=== PATIENT | male | born 1975 | race Caucasian/White ===

== ENCOUNTER 2023-12-27 11:39 | Day surgery (SDC) | payer OTHER, SELFPAY ==
[2023-12-25 16:35] VITALS: BMI 24.4
--- NOTE | 2023-12-27 12:21 | ECG_ITS ---
APPROVED REPORT Exam: Resting ECG HR:71 bpm ECG Measurements Heart Rate 71 AXES SD 150 P 70 QRSd 102 QRS 70 QT 400 T 61 QTc 423 Conclusion SINUS RHYTHM LEFT ATRIAL abnormality BORDERLINE ECG UNCONFIRMED REPORT Electronically signed by : Micha Hinds MD 12/31/2023 12:53:39
--- NOTE | 2023-12-27 12:42 | EXP.ANES.CKL ---
[facility] Disclaimer: The information contained in this section may have been updated after the patient was seen, as this information can be updated by other users. Medical History Hypertension Surgical History No significant past surgical history Family History Other No significant family history Social History Smoking Status: Never smoker alcohol intake: never substance use type: denies use current occupational status: employed Travel in the last 8 weeks: None [facility] Anesthesia Checklist Patient Identification Patient Identification: Arm Band and Verbal (Name & ) Structural Data Admitted From: Home Planned Operative Procedure/s: Colonoscopy Consent for Planned Operative Procedure(s) Verified: Yes Verified Documents: Surgical Consent and History and Physical NPO Status Verified Time NPO: 00:00 Additional verifications Anesthesia Reactions: No Airway Assessment Mallampati Score:: Class II C-Spine Mobility Assessed: Yes TMJ Mobility Assessed: Yes Dentition: Good Dentition Neurological Assessment Level of Consciousness: Awake Hx Seizures: No Numbness or tingling in extremities: No Anesthesia Plan Anesthesia Risk discussed: Yes Anesthesia Plan: Verified ASA Class: II Anesthesia Type: MAC
[2023-12-27 13:04] VITALS: O2SAT 100
[2023-12-27 13:07] VITALS: BP 139/89; PULSE 77; RESP 18; TEMP 36.6; O2SAT 100
--- NOTE | 2023-12-27 13:07 | EXP.HP ---
History of Present Illness *Admission Date: 12/27/23 *Reason for visit:: Positive Cologuard *History of present illness: Mr. Lim is a 48-year-old gentleman who is here for positive Cologuard. This is his first colonoscopy. The examination is deemed medically necessary for colonoscopy for screening. The patient has been seen, interviewed and examined prior to the procedure by both myself and the anesthesia provider. [facility] Disclaimer: The information contained in this section may have been updated after the patient was seen, as this information can be updated by other users. Medical History Hypertension Surgical History No significant past surgical history Family History Other No significant family history Social History (Updated 12/27/23 @ 12:42 by Jose Baltazar CRNA) Smoking Status: Never smoker alcohol intake: never substance use type: denies use current occupational status: employed Travel in the last 8 weeks: None Review of Systems Review of Systems Review of systems (narrative): Negative *Cardiovascular Comments: Negative *Gastrointestinal Comments: Negative *Genitourinary Comments: Negative *Musculoskeletal Comments: Negative *Neurologic Comments: Negative Meds Home Medications and Allergies Home Medications ?Medication ?Instructions ?Recorded ?Confirmed ?Type lisinopril 20 mg tablet 20 mg PO DAILY 12/27/23 12/27/23 History New Prescriptions to Start Prescriptions: Allergies Allergy/AdvReac Type Severity Reaction Status Date / Time cephalexin [From Keflex] Allergy Unknown Verified 12/26/23 08:04 allergy reaction Exam Data for Last 24 hours Vital signs and Labs for Last 24 Hours: O2 Del Method O2 Flow Rate Nasal Cannula 5 12/27/23 13:04 12/27/23 13:04 I & O for Last 24 hours: Intake & Output 12/24/23 12/25/23 12/26/23 12/27/23 22:59 23:59 23:59 23:59 Weight 185 lb *Routine HEENT Exam Head: Present normocephalic Eye: Present EOMI and PERRL ENT: Present mucous membranes moist *Routine Neck Exam Neck: Present supple *Routine Respiratory Exam Respiratory: Present CTA bilaterally *Routine Cardiovascular Exam Cardiovascular: Present RRR *Routine Abdominal Exam Abdominal: Present soft and normoactive bowel sounds; Absent tenderness *Routine Rectal Exam Rectal:: deferred *Routine Genitalia Exam Genitalia:: deferred *Routine Extremities Exam Extremities: Absent cyanosis, clubbing or edema *Routine Skin Exam Skin: Present warm; Absent rash *Routine Neurological Exam Neurological: Present alert and oriented X3 Assessment and Plan *Assessment and plan (1) Positive colorectal cancer screening using Cologuard test: Status: Acute Category: Medical Code(s): R19.5 - Other fecal abnormalities Plan A/P: 1. Positive Cologuard is the preprocedural diagnosis. The patient will be anesthetized/sedated using MAC sedation. The patient has been seen and examined. Cardiac and lung assessment prior to the examination is stable. Proceed with planned colonoscopy
--- NOTE | 2023-12-27 13:09 | HMH.PROCNOTE ---
[facility] Procedure Note Date: 12/27/23 Time: 13:30 Procedure Note:: Colonoscopy Procedure Report: Colonoscopy with cold snare polypectomy and cold biopsies Endoscopist: Ney Hudson II, MD Referring physician: Jessica Garcia MD Date of Procedure: December 27, 2023 Equipment: Olympus 190 variable stiffness pediatric colonoscope Sedation: MAC sedation Indication: Mr. Lim is a 48-year-old gentleman who is here for screening colonoscopy secondary to a positive Cologuard. He reports no abdominal pain, weight loss, change in his bowel habits or rectal bleeding. He reports no family history of colon cancer. Procedure: Prior to the procedure, a history and physical exam was performed, and patient's medications and allergies were reviewed. The risks, benefits and alternatives of the sedation and procedure were discussed with the patient. All questions were answered and informed consent was obtained. The patient was brought to the procedure room. Patient identification and proposed procedure were verified by the physician and the nurse. The patient was placed in a left lateral decubitus position and the scope was passed under direct vision. Throughout the procedure, the patient's blood pressure, pulse, and oxygen saturations were monitored continuously. The colonoscopy was accomplished without difficulty. The patient tolerated the procedure well. Findings: On digital rectal examination there was normal rectal tone. There were no external hemorrhoids. The prostate was 2+, smooth, soft, symmetric without nodules. The colonoscope was introduced through the anal canal to the rectum and advanced to the cecum. The ileocecal valve and appendiceal orifice were identified. The scope was advanced a short distance into the ileum which appeared grossly normal. There is mild benign ileal lymphoid nodules and one was biopsied. The scope was then withdrawn into the colon. There were 2 polyps (transverse x 1 (12 mm) and rectum x 1 (3 mm)). Both of these were removed via cold snare polypectomy. The remaining cecum, ascending, transverse, descending, sigmoid and rectum were grossly normal. There were no mucosal abnormalities identified. Upon retroflexion within the rectum there were grade 2 internal hemorrhoids.The preparation was excellent throughout with Grygla Preparation Score of 9. The cecal time was 14 minutes. Impression: 1. Transverse colon polyp (12 mm) 2. Rectal polyp (3 mm) 3. Grade 2 internal hemorrhoids Plan: I will follow-up the polyp histology. The transverse polyp is a slightly larger adenomatous polyp. I would recommend repeat surveillance colonoscopy again in 3 to 5 years based upon the pathology.
[2023-12-27 13:32] VITALS: BP 82/50; PULSE 104; RESP 16; TEMP 36.1; O2SAT 96
[2023-12-27 13:42] VITALS: BP 93/57; PULSE 91; RESP 16; O2SAT 96
[2023-12-27 13:51] VITALS: BP 101/86; PULSE 99; RESP 18; O2SAT 97
[2023-12-27 14:02] VITALS: BP 114/77; PULSE 98; RESP 16; O2SAT 98
[2023-12-28 08:36] LABS: POC Glucose,Bedside 92 (70-110)
== END 2023-12-27 14:07 | disposition home or self-care (01) ==
PROVIDERS: PCP Internal Medicine Addiction Medicine; Visit Provider Internal Medicine Gastroenterology
PROC: (CPT 45385; principal; 2023-12-27 13:00)
DX: R19.5 Other fecal abnormalities (principal); Z12.11 Encounter for screening for malignant neoplasm of colon; K63.5 Polyp of colon; K64.1 Second degree hemorrhoids
CPT/HCPCS: 45385; 45380; 82962; 93005; J1595; J2704